=== PATIENT | female | born 1975 | race Two or more races ===

== ENCOUNTER 2023-11-05 22:39 | Emergency (ER) | payer OTHER ==
[~2023-11-05] VITALS: Ht 165.1 cm; Wt 59.0 kg
[2023-11-05] MEDS ORDERED: ESTROVEN CMPLT M4 MG (22:51)
[2023-11-05] MEDS ORDERED: VITAMIN D3100 GM (22:52)
[2023-11-05] MEDS ORDERED: CALCIUM500 M2 (22:52)
[2023-11-06 03:13] LABS: URINE APPEARANCE Clear; URINE BILIRRUBIN Negative (NEGATIVE); URINE BLOOD Negative; URINE COLOR Yellow; URINE GLUCOSE Negative (NEGATIVE); URINE LEUKOCYTE Negative; URINE NITRATE Negative; URINE PROTEIN Negative (NEGATIVE)
[2023-11-06 03:14] LABS: HEMATOCRIT 37.5 % (36.0-45.00); HEMOGLOBIN 12.7 g/dL (12.0-15.00); MEAN CELL VOLUME 86.7 fL (80.00-100.00); MEAN CORPUSCULAR HEMOGLOBIN 29.3 pg (27.00-32.0); MEAN CORPUSCULAR HGB CONC 33.8 g/dl (32.0-36.0); PLATELET COUNT 196 K/uL (150-450); RED BLOOD COUNT 4.33 M/uL (4.00-6.00); RED CELL DISTRIBUTION WIDTH 13.2 % (11.5-14.5)
[2023-11-06 03:17] LABS: URINE BACTERIA 11.3 uL (0.0-1933); URINE EPITHELIAL CELLS 2.1 uL (0.0-38.8); URINE WBC 3.8 uL (0.0-23.2)
[2023-11-06 03:33] LABS: CREATININE SERUM 0.8 mg/dL (0.55-1.02); GFR 76.24; POTASSIUM 3.64 mEq/L (3.5-5.1)
== END 2023-11-06 12:57 | disposition home or self-care (01) ==
LOC: ER 22:39
DX: K59.00 Constipation, unspecified (principal); R10.32 Left lower quadrant pain
CPT/HCPCS: 36415; 74177; 96365; 99284; J1885; J2270; Q9965